=== PATIENT | female | born 1960 | race Caucasian/White ===

== ENCOUNTER 2016-10-02 19:06 | Emergency (ER) | payer OTHER ==
[~2016-10-02 19:06] MED LIST: AMITIZA8 MCG PO; BENTYL 10 MG CA10 MG PO; BUSPIRONE10 MG PO; COMPRO25 MG; CRESTOR 5MG5 MG PO; CRESTOR20 MG PO; CRESTOR40 MG PO; DIAZEPAM5 MG PO; DONNATAL PO; DULOXETINE HYDR30 MG PO; DULOXETINE60 MG PO; JARDIANCE10 M1 PO; JARDIANCE10 MG PO; LEVSIN 0.1250.125 MG PO; LEVSIN-SL0.125 MG SL; LOMOTIL 0.025 M1 TAB PO; METFORMIN HCL500 MG PO; METHIMAZOLE10 MG PO; MIRALAX17 GM PO; NORCO 5-325 TA1 EACH PO; PAROXETINE HCL10 MG PO; PAROXETINE HYDR20 MG PO; PERCOCET 325 MG1 TA2 PO; PERCOCET 5-3251 EACH PO; PHENERGAN25 M1 PO; PHENERGAN25 M2 PR; PHENERGAN25 MG PR; PROMETHAZINE HC25 M3 PO; PROMETHAZINE25 M1 PO; PROTONIX 40MG T40 MG PO; TRADJENTA5 MG PO; TRAZODONE HCL100 MG PO; TRAZODONE150 MG PO; ULTRAM(MONOGRAP50 MG PO; VICODIN 500 MG-1 TAB PO; VITAMIN D50000 IU PO; XANAX0.5 MG PO; ZETIA10 MG PO
--- NOTE | 2016-10-02 21:01 | ED GI/GU/ABDOMINAL COMPLAINT ---
History of Present Illness General Chief Complaint: Abdominal Pain/Flank Pain Stated Complaint: ABD PAIN VOMMITING Source: patient Exam Limitations: no limitations Vital Signs & Intake/Output Vital Signs & Intake/Output Vital Signs Date Time Temp Pulse Resp B/P Pulse O2 O2 Flow FiO2 Ox Delivery Rate 10/03 0037 98.6 110 18 152/88 97 Room Air 10/02 2120 99 Room Air 10/02 2010 98.4 103 18 137/90 98 Room Air Allergies Coded Allergies: Iodinated Contrast Media - Oral and (Iodinated Contrast Media - IV Dye) (Severe, CHEST TIGHTNESS, SOB, HIVES, ITCHY 10/02/16) Sulfa (Sulfonamide Antibiotics) (Severe, HIVES 03/08/16) tramadol (From Ultram) (Severe, HIVES 03/08/16) ondansetron (From Zofran (as hydrochloride)) (Severe, CHEST PAIN 03/08/16) dicyclomine (From Bentyl) (Intermediate, ANXIETY 03/08/16) metoclopramide (From Reglan) (Intermediate, CRAMPS, JAW CLENCHING, RESTLESS LEGS 10/02/16) Reconcile Medications Diazepam 2 MG TABLET 1-2 TAB PO PRN ANXIETY (Reported) Docusate Sodium (Colace) 100 MG CAPSULE 2 CAP PO DAILY GI (Reported) Duloxetine Hydrochloride (Cymbalta) 30 MG CAPSULE.DR 90 MG PO DAILY MENTAL HEALTH (Reported) Empagliflozin (Jardiance) 25 MG TABLET 1 TAB PO DAILY DIABETES (Reported) Ergocalciferol (Vitamin D2) (Vitamin D2) 50,000 UNIT CAPSULE 1 CAP PO QSUN SUPPLEMENT (Reported) Ezetimibe (Zetia) 10 MG TAB 1 TAB PO DAILY CHOLESTEROL (Reported) Glimepiride 4 MG TABLET 1 TAB PO BID DM (Reported) Levothyroxine Sodium 50 MCG TABLET 1 TAB PO AD THYROID (Reported) Oxycodone HCl/Acetaminophen (Percocet 5-325 MG Tablet) 5 MG-325 MG TABLET 1 TAB PO BID PRN PAIN Pantoprazole Sodium (Protonix) 40 MG TABLET.DR 1 TAB PO BID GI (Reported) Promethazine HCl 25 MG TABLET 1 TAB PO Q6P PRN NAUSEA Rosuvastatin Calcium (Crestor) 20 MG TABLET 1 TAB PO DAILY CHOLESTEROL ( Reported) Trazodone HCl 100 MG TABLET 1-2 TAB PO QPM SLEEP/MENTAL HEALTH (Reported) Triage Note: TRIAGE; PT TO ED C/O ABD PAIN SINCE SATURDAY AND WORSE TODAY. STATES SHE HAS HAD DIARRHEA INTERMITTENTLY SINCE THE WEEKEND, AND VOMITING STARTED TODAY, DENIES ANY BLOOD ANYWHERE. STATES UNABLE TO KEEP ANYTHING PO DOWN TODAY. HAS A HX OF BOWEL OBSTRUCTION, STATES IT FEELS SIMILAR. MOST OF PAIN IS TO HER RIGHT FLANK, RADIATING TO HER BACK, FEELS LIKE A THROBBING PAIN. DENIES ANY URINARY S/S. Triage Nurses Notes Reviewed? yes ? N Is pt currently ? No Onset: Abrupt Duration: getting worse Timing: recent history Quality/Severity: moderate Severity Numbers: 5 Radiation: no radiation HPI: Patient is a 56-year-old female who presents emergency him saying that on Saturday 4 days ago patient had gradual onset of abdominal discomfort and distention last bowel movement was 3 days ago. Patient presents emergency and that today she is unable tolerate anything by mouth due to significant nausea and nonbloody nonbilious episodes of vomiting when trying to by mouth challenge herself. Last bowel movement was 2 days ago no blood no melena and noted. Denies any fever chills chest pain and arm pain jaw pain nausea vomiting back pain dysuria vaginal bleeding vaginal discharge Past History Travel History Traveled to [place] past 21 day No Medical History Any Pertinent Medical History? 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 No Review of Systems Review of Systems Constitutional: Reports: no symptoms. EENTM: Reports: no symptoms. Respiratory: Reports: no symptoms. Cardiovascular: Reports: no symptoms. GI: Reports: see HPI, abdominal pain, nausea. Genitourinary: Reports: no symptoms. Musculoskeletal: Reports: no symptoms. Skin: Reports: no symptoms. Neurological/Psychological: Reports: no symptoms. Hematologic/Endocrine: Reports: no symptoms. Immunologic/Allergic: Reports: no symptoms. All Other Systems: Reviewed and Negative Physical Exam Physical Exam General Appearance: mild distress, obese Gastrointestinal: normal bowel sounds, no organomegaly, RIGHT QUADRANT POINT TENDERNESS NOTED Comments: HEENT: Normal EENT exam, Neck: Supple, no lymphadenopathy, normal range of motion without pain or tenderness Back: Nontender, no CVA tenderness. Cardiovascular: Regular rate and rhythms no murmurs rubs or gallops, normal JVP Respiratory: Chest nontender. No respiratory distress.breath sounds clear to auscultation bilaterally Extremity: No edema, no calf tenderness to palpation, normal and equal pulses. Neuro: Alert oriented x3, motor sensory normal, Skin: No appreciable rash on exposed skin, skin is warm and dry. Psych: Mood and affect is normal, memory and judgment is normal. Core Measures ACS in differential dx? No Severe Sepsis Present: No Septic Shock Present: No Progress Differential Diagnosis: AAA, AMI, appendicitis, biliary colic, bowel obstruction , colon cancer, cholecystitis, diverticulitis, ectopic , endometritis, esophageal varices, gastritis, hepatitis, hernia, hemorrhoids, ischemic bowel, inflamm bowel dis, intrauterine , kidney stone, Aster-Yunior tear, ovarian cyst, ovarian torsion, pancreatitis, PID/cervicitis, peptic ulcer, PUD/ GERD, perforated viscous, SBO, threatened AB, UTI/pyelo Plan of Care: Orders Procedure Date/time Status LIPASE 10/02 2012 Complete LACTIC ACID 10/02 2012 Complete COMPREHENSIVE METABOLIC PANEL 10/02 2012 Complete CBC WITHOUT DIFFERENTIAL 10/02 2012 Complete AMYLASE 10/02 2012 Complete Laboratory Tests 10/02/16 2313: Lactic Acid Cancelled 10/02/16 2209: Anion Gap 16, Estimated GFR > 60, BUN/Creatinine Ratio 26.0 H, Glucose 98, Lactic Acid 0.9, Calcium 9.5, Total Bilirubin 0.6, AST 28, ALT 38, Alkaline Phosphatase 67, Total Protein 7.0, Albumin 4.2, Globulin 2.8, Albumin/Globulin Ratio 1.5, Amylase 63, Lipase 172, CBC w Diff NO MAN DIFF REQ, RBC 5.06, MCV 84.6, MCH 28.1, RDW 14.1, MPV 9.0, Gran % 59.7, Lymphocytes % 32.2, Monocytes % 7.0, Eosinophils % 0.4, Basophils % 0.7, Absolute Granulocytes 4.7, Absolute Lymphocytes 2.5, Absolute Monocytes 0.5, Absolute Eosinophils 0, Absolute Basophils 0.1, PUBS MCHC 33.2 Patient had significant resolution of pain and nausea with morphine and Phenergan Patient had unremarkable initial blood work and CT scan findings Patient was able tolerate by mouth on discharge Patient was strongly advised to 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 Radiology Impression: no acute abnormality Initial ED EKG: none Comments: PATIENT: MARCELINO CAMPOS PRESENT AGE: 56 PATIENT ACCOUNT NO: [id number] : 60 LOCATION: [facility] ORDERING PHYSICIAN: ANGELA MILLER SERVICE DATE: 10/02/16 EXAM TYPE: CAT - CT ABD & PELVIS W/O IV CONTRAS EXAMINATION: CT ABDOMEN AND PELVIS WITHOUT CONTRAST CLINICAL INFORMATION: History of appendectomy and cholecystectomy. Nausea vomiting and abdominal pain. History of pancreatitis. COMPARISON: CT scan abdomen pelvis 05/30/2016. TECHNIQUE: Multidetector volumetric imaging was performed from the superior aspect of the liver through the pubic symphysis. Sagittal and coronal reformatted images were obtained on the technologist's workstation. No oral or intravenous contrast. DLP: 518.04 mGy-cm. FINDINGS: LUNG BASES: The visualized lung bases are unremarkable. LIVER, GALLBLADDER, AND BILIARY TREE: The liver is normal in size, shape, and attenuation. No focal hepatic lesion or biliary ductal dilatation is present. Status post cholecystectomy. No bile duct dilatation. Extrahepatic CBD measures 5 mm. No calcified stone within the bile duct. PANCREAS: Unremarkable. SPLEEN: Unremarkable. ADRENAL GLANDS: Unremarkable. KIDNEYS AND URETERS: Parapelvic cyst lower pole of left kidney measuring 1.6 cm. Less than 1 mm size stone lower pole of the right kidney. No hydronephrosis. No ureteral stone. BLADDER: Unremarkable. GASTROINTESTINAL TRACT: No acute change of the bowel. No bowel obstruction. No bowel wall thickening or edema. There is mild diverticulosis but no diverticulitis. There are surgical sutures at the tip of the cecum consistent with history of appendectomy. ABDOMINAL WALL: Surgical mesh at the lower anterior central pelvis. No evidence of recurrent hernia. LYMPH NODES: Normal. VASCULAR: Unremarkable. PELVIC VISCERA: Uterus is absent. No adnexal abnormality. OSSEOUS STRUCTURES: Unremarkable. IMPRESSION: No acute abnormality CT scan abdomen and pelvis. Departure Departure Disposition: HOME OR SELF CARE Condition: Stable Clinical Impression Primary Impression: Abdominal pain Secondary Impressions: Nausea & vomiting Referrals: JULIANN KAUR APRN (PCP/Family) Additional Instructions: As discussed begin the prescription of Percocet for pain if needed. Begin the prescription of Phenergan for nausea. BEGIN a 24-hour clear liquid and bland diet to rest her bowels. If symptoms worsen return to the emergency room Departure Forms: Customer Survey General Discharge Information Prescriptions: Current Visit Scripts Oxycodone HCl/Acetaminophen (Percocet 5-325 MG Tablet) 1 TAB PO BID PRN PAIN #8 TAB Promethazine HCl 1 TAB PO Q6P PRN NAUSEA #12 TAB
[2016-10-02] MEDS ORDERED: CYMBALTA30 M1 PO (21:11)
[2016-10-02] MEDS ORDERED: DIAZEPAM2 M1 PO (21:11)
[2016-10-02] MEDS ORDERED: VITAMIN D250000 UNIT PO (21:12)
[2016-10-02] MEDS ORDERED: CRESTOR20 M2 PO (21:13)
[2016-10-02] MEDS ORDERED: TRAZODONE HCL100 M1 PO (21:14)
[2016-10-02] MEDS ORDERED: LEVOTHYROXINE50 MCG PO (21:15)
[2016-10-02] MEDS ORDERED: GLIMEPIRIDE4 M1 PO (21:15)
[2016-10-02] MEDS ORDERED: COLACE100 M1 PO (21:16)
--- NOTE | 2016-10-02 21:41 | CT SCAN REPORT ---
EXAMINATION: CT ABDOMEN AND PELVIS WITHOUT CONTRAST CLINICAL INFORMATION: History of appendectomy and cholecystectomy. Nausea vomiting and abdominal pain. History of pancreatitis. COMPARISON: CT scan abdomen pelvis 05/30/2016. TECHNIQUE: Multidetector volumetric imaging was performed from the superior aspect of the liver through the pubic symphysis. Sagittal and coronal reformatted images were obtained on the technologist's workstation. No oral or intravenous contrast. DLP: 518.04 mGy-cm. FINDINGS: LUNG BASES: The visualized lung bases are unremarkable. LIVER, GALLBLADDER, AND BILIARY TREE: The liver is normal in size, shape, and attenuation. No focal hepatic lesion or biliary ductal dilatation is present. Status post cholecystectomy. No bile duct dilatation. Extrahepatic CBD measures 5 mm. No calcified stone within the bile duct. PANCREAS: Unremarkable. SPLEEN: Unremarkable. ADRENAL GLANDS: Unremarkable. KIDNEYS AND URETERS: Parapelvic cyst lower pole of left kidney measuring 1.6 cm. Less than 1 mm size stone lower pole of the right kidney. No hydronephrosis. No ureteral stone. BLADDER: Unremarkable. GASTROINTESTINAL TRACT: No acute change of the bowel. No bowel obstruction. No bowel wall thickening or edema. There is mild diverticulosis but no diverticulitis. There are surgical sutures at the tip of the cecum consistent with history of appendectomy. ABDOMINAL WALL: Surgical mesh at the lower anterior central pelvis. No evidence of recurrent hernia. LYMPH NODES: Normal. VASCULAR: Unremarkable. PELVIC VISCERA: Uterus is absent. No adnexal abnormality. OSSEOUS STRUCTURES: Unremarkable. IMPRESSION: No acute abnormality CT scan abdomen and pelvis.
[2016-10-02 22:52] LABS: ABSOLUTE BASOPHIL COUNT 0.1 /CUMM (0.0-0.2); ABSOLUTE EOSINOPHIL COUNT 0 /CUMM (0.0-0.7); ABSOLUTE GRANULOCYTE CT 4.7 /CUMM (1.4-6.5); ABSOLUTE LYMPH COUNT 2.5 /CUMM (1.2-3.4); ABSOLUTE MONOCYTE COUNT 0.5 /CUMM (0.10-0.60); BASOPHIL % 0.7 % (0.0-2.0); EOSINOPHIL % 0.4 % (0-5); GRANULOCYTE % 59.7 % (42.2-75.2); HEMATOCRIT 42.8 % (37-47); MEAN CORPUSCULAR HGB 28.1 PG (27.0-31.0); MEAN CORPUSCULAR HGB CONC 33.2 G/DL (33.0-37.0); MEAN CORPUSCULAR VOLUME 84.6 FL (81.0-99.0); PLATELET COUNT 244 /CUMM (130-400); RBC DISTRIBUTION WIDTH 14.1 % (11.5-14.5); RED BLOOD CELL CT 5.06 /CUMM (4.20-5.40); WHITE BLOOD CELL COUNT 7.8 /CUMM (4.8-10.8)
[2016-10-02] MEDS ORDERED: PERCOCET 5-3251 EACH PO (23:52)
[2016-10-02] MEDS ORDERED: PROMETHAZINE HC25 M3 PO (23:52)
[2016-10-03 00:37] VITALS: BP 152/88
== END 2016-10-03 00:38 ==
LOC: ERH 19:06
PROVIDERS: Emergency Medicine
DX: R10.9 Unspecified abdominal pain (principal); R11.2 Nausea with vomiting, unspecified
CPT/HCPCS: 74176; 96374; 96375; 96376; J2550

== ENCOUNTER 2017-01-22 21:52 | Emergency (ER) | payer OTHER ==
[~2017-01-22] VITALS: Ht 160 cm; Wt 83.9 kg
[~2017-01-22 21:52] MED LIST changes: +COLACE100 M1 PO; +CRESTOR20 M2 PO; +CYMBALTA30 M1 PO; +DIAZEPAM2 M1 PO; +GLIMEPIRIDE4 M1 PO; +LEVOTHYROXINE50 MCG PO; +TRAZODONE HCL100 M1 PO; +VITAMIN D250000 UNIT PO
--- NOTE | 2017-01-22 22:41 | ED GI/GU/ABDOMINAL COMPLAINT ---
History of Present Illness General Chief Complaint: General Adult Stated Complaint: "SEVERE ABD PAIN,N/V/D SINCE SATURDAY" Source: patient, old records Exam Limitations: no limitations Vital Signs & Intake/Output Vital Signs & Intake/Output Vital Signs Date Time Temp Pulse Resp B/P B/P Pulse O2 O2 Flow FiO2 Mean Ox Delivery Rate 01/22 2205 97.0 89 18 144/82 98 Room Air ED Intake and Output 01/23 0000 01/22 1200 Intake Total Output Total Balance Patient 185 lb Weight Weight Reported by Patient Measurement Method Allergies Coded Allergies: Iodinated Contrast Media - Oral and (Iodinated Contrast Media - IV Dye) (Severe, CHEST TIGHTNESS, SOB, HIVES, ITCHY 10/02/16) Sulfa (Sulfonamide Antibiotics) (Severe, HIVES 03/08/16) tramadol (From Ultram) (Severe, HIVES 03/08/16) ondansetron (From Zofran (as hydrochloride)) (Severe, CHEST PAIN 03/08/16) dicyclomine (From Bentyl) (Intermediate, ANXIETY 03/08/16) metoclopramide (From Reglan) (Intermediate, CRAMPS, JAW CLENCHING, RESTLESS LEGS 10/02/16) Reconcile Medications Diazepam 2 MG TABLET 1-2 TAB PO PRN ANXIETY (Reported) Docusate Sodium (Colace) 100 MG CAPSULE 2 CAP PO DAILY GI (Reported) Duloxetine Hydrochloride (Cymbalta) 30 MG CAPSULE.DR 90 MG PO DAILY MENTAL HEALTH (Reported) Empagliflozin (Jardiance) 25 MG TABLET 1 TAB PO DAILY DIABETES (Reported) Ergocalciferol (Vitamin D2) (Vitamin D2) 50,000 UNIT CAPSULE 1 CAP PO QSUN SUPPLEMENT (Reported) Ezetimibe (Zetia) 10 MG TAB 1 TAB PO DAILY CHOLESTEROL (Reported) Glimepiride 4 MG TABLET 1 TAB PO BID DM (Reported) Levothyroxine Sodium 50 MCG TABLET 1 TAB PO AD THYROID (Reported) Oxycodone HCl/Acetaminophen (Percocet 5-325 MG Tablet) 5 MG-325 MG TABLET 1 TAB PO BID PRN PAIN Pantoprazole Sodium (Protonix) 40 MG TABLET.DR 1 TAB PO BID GI (Reported) Promethazine HCl 25 MG TABLET 1 TAB PO Q6P PRN NAUSEA Rosuvastatin Calcium (Crestor) 20 MG TABLET 1 TAB PO DAILY CHOLESTEROL ( Reported) Trazodone HCl 100 MG TABLET 1-2 TAB PO QPM SLEEP/MENTAL HEALTH (Reported) Triage Note: PT TO ED C/O +N/V/D. VOMITTING STARTED TODAY, +NAUSEA AND DIARRHEA FOR 3 DAYS. VSS Triage Nurses Notes Reviewed? yes ? N Is pt currently ? No HPI: Patient presents with worsening pain in her right upper quadrant since Saturday. The pain is sharp and stabbing in nature. The pain radiates to the epigastric area. There are no aggravating or mitigating factors. Positive nausea vomiting and diarrhea. There's been no blood in her vomitus or her stool. She rates the pain as 10 out of 10. The pain is constant and worsening. There are no fevers or chills. There is no dysuria. Past History Travel History Traveled to [place] past 21 day No Medical History Any Pertinent Medical History? 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 No Review of Systems Review of Systems Constitutional: Reports: no symptoms. EENTM: Reports: no symptoms. Respiratory: Reports: no symptoms. Cardiovascular: Reports: no symptoms. GI: Reports: see HPI, abdominal pain, diarrhea, nausea, vomiting. Genitourinary: Reports: no symptoms. Musculoskeletal: Reports: no symptoms. Skin: Reports: no symptoms. Neurological/Psychological: Reports: no symptoms. Hematologic/Endocrine: Reports: no symptoms. Immunologic/Allergic: Reports: no symptoms. All Other Systems: Reviewed and Negative Physical Exam Physical Exam General Appearance: well developed/nourished, alert, awake, anxious, moderate distress Head: atraumatic, normal appearance Eyes: Bilateral: PERRL, EOMI. Ears, Nose, Throat, Mouth: hearing grossly normal, DRY MUCOSA Neck: normal inspection, supple, full range of motion Respiratory: normal breath sounds, chest non-tender, no respiratory distress, lungs clear Cardiovascular: regular rate/rhythm, normal peripheral pulses Gastrointestinal: soft, no organomegaly, guarding, tenderness Back: normal inspection Extremities: normal range of motion Neurologic/Psych: no motor/sensory deficits, awake, alert, oriented x 3, normal gait, normal mood/affect Skin: intact, normal color, warm/dry Core Measures ACS in differential dx? No Severe Sepsis Present: No Septic Shock Present: No Progress Differential Diagnosis: bowel obstruction, diverticulitis, gastritis, hepatitis, ischemic bowel, inflamm bowel dis, pancreatitis, peptic ulcer, PUD/GERD, perforated viscous, SBO Plan of Care: Orders Procedure Date/time Status TROPONIN LEVEL 01/23 2240 Complete LIPASE 01/23 2240 Complete COMPREHENSIVE METABOLIC PANEL 01/23 2240 Complete CBC WITHOUT DIFFERENTIAL 01/23 2240 Complete AMYLASE 01/23 2240 Complete EKG 01/23 2240 Active Laboratory Tests 01/22/17 2303: Anion Gap 13, Estimated GFR > 60, BUN/Creatinine Ratio 22.0, Glucose 91, Calcium 9.3, Total Bilirubin 0.5, AST 20, ALT 38, Alkaline Phosphatase 72, Troponin I < 0.01, Total Protein 7.1, Albumin 4.4, Globulin 2.7, Albumin/Globulin Ratio 1.6, Amylase 77, Lipase 219, CBC w Diff NO MAN DIFF REQ, RBC 4.93, MCV 83.0, MCH 27.4 , RDW 13.0, MPV 8.1, Gran % 59.4, Lymphocytes % 30.9, Monocytes % 7.5, Eosinophils % 0.8, Basophils % 1.4, Absolute Granulocytes 4.1, Absolute Lymphocytes 2.1, Absolute Monocytes 0.5, Absolute Eosinophils 0.1, Absolute Basophils 0.1, PUBS MCHC 33.1 Diagnostic Imaging: Viewed by Me: CT Scan. Discussed w/RAD: CT Scan. Radiology Impression: PATIENT: MARCELINO CAMPOS PRESENT AGE: 56 PATIENT ACCOUNT NO: [id number] : 60 LOCATION: [facility] ORDERING PHYSICIAN: ABHIJEET KYLE MD SERVICE DATE: 01/22/17 EXAM TYPE: CAT - CT ABD & PELVIS W/O IV CONTRAS EXAMINATION: CT ABDOMEN AND PELVIS WITHOUT CONTRAST CLINICAL INFORMATION: Right upper quadrant pain, nausea COMPARISON: 10/02/2016 TECHNIQUE: Multidetector volumetric imaging was performed from the superior aspect of the liver through the pubic symphysis. Sagittal and coronal reformatted images were obtained on the technologist's workstation. DLP: 576.73 mGy-cm FINDINGS: LUNG BASES: The visualized lung bases are unremarkable. LIVER, GALLBLADDER, AND BILIARY TREE: The liver is normal in size, shape, and attenuation. No focal hepatic lesion or biliary ductal dilatation is present. Pneumobilia is noted. Patient is status post cholecystectomy. PANCREAS: Unremarkable. SPLEEN: Unremarkable. ADRENAL GLANDS: Unremarkable. KIDNEYS AND URETERS: The kidneys are normal in size, shape, and attenuation. A mid left renal cyst is demonstrated measuring approximately 3.0 x 1.7 cm. There is a redemonstrated punctate right lower pole renal calculus. No hydronephrosis, hydroureter, or obstructing calculi seen. No perinephric stranding. BLADDER: Unremarkable. GASTROINTESTINAL TRACT: Colonic diverticulosis is noted. The small and large bowel are otherwise unremarkable without evidence of obstruction or pericolonic inflammatory change. Patient is status post appendectomy. ABDOMINAL WALL: There is evidence of prior lower abdominal wall ventral hernia repair. LYMPH NODES: Normal. VASCULAR: There is mild calcification along the infrarenal aorta. PELVIC VISCERA: Patient is status post hysterectomy. OSSEOUS STRUCTURES: Mild degenerative changes are present in the spine. IMPRESSION: No acute findings identified in the abdomen/pelvis. DICTATED BY: ZUNILDA VANEGAS MD DATE/ TIME DICTATED:01/22/172323 ROVING SIZER:DMITRY DATE/TIME TRANSCRIBED: 01/22/172323 CONFIDENTIAL, DO NOT COPY WITHOUT APPROPRIATE AUTHORIZATION. < Electronically signed in Other Vendor System> SIGNED BY: ZUNILDA VANEGAS MD 01/22/171 Initial ED EKG: NSR, no ST T wave changes Prior EKG: unchanged Departure Departure Disposition: HOME OR SELF CARE Condition: Stable Clinical Impression Primary Impression: Upper abdominal pain, unspecified Referrals: SHANNON MATA,SUZAN Wilson (PCP/Family) Additional Instructions: RETURN IF SYMPTOMS WORSEN OR FOR ANY CONCERNS Departure Forms: Customer Survey General Discharge Information Prescriptions: Current Visit Scripts Hyoscyamine (Levsin) 1 TAB PO Q4 PRN ABDOMINAL PAIN #20 TAB Oxycodone HCl/Acetaminophen (Percocet 5-325 MG Tablet) 1-2 TAB PO Q6P PRN PAIN #20 TAB
[2017-01-22 23:12] LABS: ABSOLUTE BASOPHIL COUNT 0.1 /CUMM (0.0-0.2); ABSOLUTE EOSINOPHIL COUNT 0.1 /CUMM (0.0-0.7); ABSOLUTE GRANULOCYTE CT 4.1 /CUMM (1.4-6.5); ABSOLUTE LYMPH COUNT 2.1 /CUMM (1.2-3.4); ABSOLUTE MONOCYTE COUNT 0.5 /CUMM (0.10-0.60); BASOPHIL % 1.4 % (0.0-2.0); EOSINOPHIL % 0.8 % (0-5); GRANULOCYTE % 59.4 % (42.2-75.2); HEMATOCRIT 40.9 % (37-47); MEAN CORPUSCULAR HGB 27.4 PG (27.0-31.0); MEAN CORPUSCULAR HGB CONC 33.1 G/DL (33.0-37.0); MEAN PLATELET VOLUME 8.1 FL (7.4-10.4); PLATELET COUNT 264 /CUMM (130-400); RED BLOOD CELL CT 4.93 /CUMM (4.20-5.40); WHITE BLOOD CELL COUNT 6.8 /CUMM (4.8-10.8)
--- NOTE | 2017-01-22 23:34 | CT SCAN REPORT ---
EXAMINATION: CT ABDOMEN AND PELVIS WITHOUT CONTRAST CLINICAL INFORMATION: Right upper quadrant pain, nausea COMPARISON: 10/02/2016 TECHNIQUE: Multidetector volumetric imaging was performed from the superior aspect of the liver through the pubic symphysis. Sagittal and coronal reformatted images were obtained on the technologist's workstation. DLP: 576.73 mGy-cm FINDINGS: LUNG BASES: The visualized lung bases are unremarkable. LIVER, GALLBLADDER, AND BILIARY TREE: The liver is normal in size, shape, and attenuation. No focal hepatic lesion or biliary ductal dilatation is present. Pneumobilia is noted. Patient is status post cholecystectomy. PANCREAS: Unremarkable. SPLEEN: Unremarkable. ADRENAL GLANDS: Unremarkable. KIDNEYS AND URETERS: The kidneys are normal in size, shape, and attenuation. A mid left renal cyst is demonstrated measuring approximately 3.0 x 1.7 cm. There is a redemonstrated punctate right lower pole renal calculus. No hydronephrosis, hydroureter, or obstructing calculi seen. No perinephric stranding. BLADDER: Unremarkable. GASTROINTESTINAL TRACT: Colonic diverticulosis is noted. The small and large bowel are otherwise unremarkable without evidence of obstruction or pericolonic inflammatory change. Patient is status post appendectomy. ABDOMINAL WALL: There is evidence of prior lower abdominal wall ventral hernia repair. LYMPH NODES: Normal. VASCULAR: There is mild calcification along the infrarenal aorta. PELVIC VISCERA: Patient is status post hysterectomy. OSSEOUS STRUCTURES: Mild degenerative changes are present in the spine. IMPRESSION: No acute findings identified in the abdomen/pelvis.
[2017-01-23] MEDS ORDERED: PERCOCET 5-3251 EACH PO (00:17)
[2017-01-23] MEDS ORDERED: LEVSIN0.125 M1 PO (00:17)
[2017-01-23 00:21] VITALS: BP 169/88
== END 2017-01-23 00:28 ==
LOC: ERH 21:52
PROVIDERS: Emergency Medicine
DX: R10.13 Epigastric pain (principal)
CPT/HCPCS: 74176; 93005; 93010; 96361; 96374; 96375; J1885; J2550